=== PATIENT | male | born 1960 | race Caucasian/White ===

== ENCOUNTER 2020-07-02 17:51 | Emergency (ER) | payer OTHER, SELFPAY ==
[2020-07-02 17:58] VITALS: BP 143/70; PULSE 54; RESP 18; TEMP 36.7; O2SAT 94
--- NOTE | 2020-07-02 18:36 | ED.WOUNDLAC ---
HPI - Wound/Laceration General Chief Complaint: Wound/Laceration Stated Complaint: Leg lac Related Data Home Medications Medication Instructions Recorded Confirmed fluticasone furoate-vilanterol 1 ea INHALATION DAILY 07/02/20 07/02/20 [Breo Ellipta] montelukast 10 mg PO HS 07/02/20 07/02/20 pirfenidone [Esbriet] 801 mg PO DAILY 07/02/20 07/02/20 potassium citrate 1,080 meq PO DAILY 07/02/20 07/02/20 pravastatin 40 mg PO DAILY 07/02/20 07/02/20 rivaroxaban [Xarelto] 20 mg PO BID 07/02/20 07/02/20 Allergies Allergy/AdvReac Type Severity Reaction Status Date / Time clindamycin Allergy Unknown Verified 07/02/20 18:20 No Known Drug Allergies Allergy Unknown Verified 07/02/20 18:20 [facility] Past Medical History Medical History (Updated 07/02/20 @ 18:43 by Leonela Baker, [facility], ) Hypertension Social History Social History Gender identity (if verbalized by the patient): Male Exam Narrative: Exam Narrative: GENERAL: Well-appearing, well-nourished, and in no acute distress. HEAD: Normocephalic, atraumatic. EYES: EOMI. No redness or drainage. Conjunctivae normal. ENT: Mucous membranes pink and moist. NECK: Normal AROM. CHEST: No respiratory distress. EXTREMITIES: Normal range of motion. No edema. SKIN: Warm, dry, no rash. Capillary refill normal. Normal skin turgor. 4cm full thickness linear laceration to the lateral left lower leg. Left lower leg is 2-3+ pitting edema at baseline. Patient has continuous clear fluid weeping from his wound saturating his home dressing. States this is his baseline when he has a lower extremity wound. Sensation intact. Capillary refill normal. NEURO: No focal deficits. Alert and oriented x3. Gait steady. PSYCH: Normal affect. No signs of depression or anxiety. Course Vital Signs Vital signs: Vital Signs Temperature 98.0 F 07/02/20 17:58 Pulse Rate 54 L 07/02/20 17:58 Respiratory Rate 18 07/02/20 17:58 Blood Pressure 143/70 H 07/02/20 17:58 Pulse Oximetry 94 07/02/20 17:58 Temperature 98.0 F 07/02/20 17:58 Pulse Rate 54 L 07/02/20 17:58 Respiratory Rate 18 07/02/20 17:58 Blood Pressure 143/70 H 07/02/20 17:58 Pulse Oximetry 94 07/02/20 17:58 Reviewed. Pt has been instructed to follow up with his PCP regarding his elevated blood pressure today. Procedures Laceration Laceration 1: Date: 07/02/20 Time: 18:20 Site: lower extremity Side (If applicable): left Size (cm): 4 Description: linear Depth: simple, single layer Local Anesthetic: lidocaine 1% Amount of anesthesia used (mL): 2 Pre-repair: wound explored and irrigated ====== Skin Level ====== Skin layer closed with: nylon Size (cm): 4-0 Number of sutures: 7 Technique: simple, interrupted ====== Subcutaneous Layer ====== ====== Muscle Layer ====== ====== Tendon Layer ====== MDM - Wound/Laceration Differential Diagnosis Differential diagnosis: Likely laceration and avulsion of skin Critical Care Time Critical Care Time Critical Care Time: No Discharge Plan Discharge Clinical Impression: Laceration of left leg Qualifiers: Encounter type: initial encounter Qualified Code(s): S81.812A - Laceration without foreign body, left lower leg, initial encounter Patient Disposition: Home, Self-Care Condition: Stable Instructions: Care For Your Stitches (DC), Laceration (DC) Additional Instructions: Your sutures need to be removed in 7-10 days. Wear the dressing that has been applied for the first 24 hours to allow a scab to start forming. After this, you may remove and wash as normal with soap and water. Do NOT wash with peroxide or alcohol. Do NOT apply antibiotic ointment. Do not submerge herself in standing water such as pools or hot tubs until the sutures are removed. Take tylenol or ibuprofen at home for pain, if able. Follow up with your PCP with
== END 2020-07-02 18:55 | disposition home or self-care (01) ==
PROVIDERS: Emergency Provider Nurse Practitioner; PCP Internal Medicine Infectious Disease
DX: S81.812A Laceration without foreign body, left lower leg, initial encounter (principal); W45.8XXA Other foreign body or object entering through skin, initial encounter; I10 Essential (primary) hypertension
CPT/HCPCS: 12002; 99202; G0463

== ENCOUNTER 2021-04-04 10:32 | Outpatient (CLI) | payer OTHER, SELFPAY ==
--- NOTE | ~2021-04-04 | US_ITS ---
EXAMINATION: US arterial ankle brachial ind DATE: 04/04/2021 11:59 INDICATION: Peripheral arterial disease. TECHNIQUE: Segmental pressures and plethysmographic and Doppler waveforms of the brachial and lower e xtremity arteries were obtained. COMPARISON: None. FINDINGS: Right and left brachial artery pressures of 135 mm Hg and 128 mm Hg, respectively, are concordant (no rmal difference <= 30 mmHg). The right ankle-brachial index (DEVAN) could not be measured due to inability to cuff occlude the arter ies (normal >= 0.9-1.0). The right great toe-brachial index (TBI) is 0.64 (normal >= 0.65). Arterial Doppler waveforms are biphasic at the ankle. The left DEVAN could not be measured due to inability to cuff occlude the arteries. The left TBI is 0.7 8. Arterial Doppler waveforms are biphasic at the ankle. IMPRESSION: 1. Borderline decreased right TBI and nondiagnostic right DEVAN, consistent with right-sided arterial o cclusive disease. 2. No significant left-sided arterial occlusive disease. Reviewed, dictated and finalized at location A. IRATORY CARE FACULTY IMPRESSION: 1. Borderline decreased right TBI and nondiagnostic right DEVAN, consistent with right-sided arterial occlusive disease. 2. No significant left-sided arterial occlusive disease.
--- NOTE | ~2021-04-04 | XR_ITS ---
XR chest 2V 04/04/2021 10:52 Indication: Shortness of breath Procedure: 2 view chest Comparison: No prior studies for comparison. Findings: Patchy bilateral airspace disease, left greater than right, consistent with pneumonia. Card iomegaly. No significant effusion or pneumothorax. Impression: 1: Patchy predominantly basilar airspace disease, consistent with pneumonia. Reviewed, dictated and finalized at location B. OCK TESTER Impression: 1: Patchy predominantly basilar airspace disease, consistent with pneumonia.
--- NOTE | ~2021-04-04 | US_ITS ---
EXAMINATION: US abdomen complete DATE: 04/04/2021 12:05 INDICATION: Cirrhosis. Portal hypertension. TECHNIQUE: Multiple grayscale and Doppler ultrasound images of the abdomen were obtained. COMPARISON: None FINDINGS: Visualized aorta is normal measuring 2.2 cm in AP diameter proximally and 1.9 cm the distal aorta. Po rtions of the mid aorta are obscured by shadowing bowel gas. The visualized proximal inferior vena ca va is normal. Liver has normal echogenicity and contour, with a smooth surface. No liver lesion ident ified. No intrahepatic biliary duct dilation suspected. Portal venous flow was seen in the hepatopeta l, normal direction and has normal Doppler waveform. There is enlargement of the hepatic veins which can be seen with tricuspid regurgitation, right heart failure or other cause of elevated right heart pressure. The gallbladder is normal in appearance. There is no cholelithiasis. The common bile duct measures 2 mm, which is normal. Sonographic Guerrero sign was reported as negative by the tractor sweeper operator. Visualized portion of the pancreatic body appears normal. Portions of the head and tail are obscured by shadowing bowel gas. There is normal renal contour and echogenicity bilaterally. The right kidney measures 11.6 x 5.5 x 5.8 cm and the left 11.5 x 5.0 x 6.2 cm. Echogenic and shadowing renal stones a t the left kidney. 2.3 cm anechoic right renal cyst. There is no hydronephrosis. Mild splenomegaly me asuring 13.3 cm in length. IMPRESSION: 1. Left nephrolithiasis with large shadowing renal stones at the left kidney. 2. Enlargement of the hepatic veins which could be seen with tricuspid regurgitation, right heart joey lure or other cause of altered right heart pressure. 3. Nonspecific mild splenomegaly measuring 13.3 cm in length. Reviewed, dictated and finalized at location A. ATION THERAPY TECHNOLOGIST IMPRESSION: 1. Left nephrolithiasis with large shadowing renal stones at the left kidney. 2. Enlargement of the hepatic veins which could be seen with tricuspid regurgit ation, right heart failure or other cause of altered right heart pressure. 3. Nonspecific mild splenomegaly measuring 13.3 cm in length.
[2021-04-04 12:33] LABS: Basophils Absolute Auto 0.1 K/mm3 (0.0-0.1); Basophils Percent Auto 0.7 % (0.2-1.2); Eosinophils Absolute Auto 0.3 K/mm3 (0-0.3); Eosinophils Percent Auto 3.8 % (0-4.4); Hematocrit 34.4 % (42.0-52.0); Hemoglobin 10.2 g/dL (14.0-18.0); Immature Granulocyte Absolute 0.04 K/mm3 (0.00-0.031); Immature Granulocyte Percent A 0.5 % (0-0.5); Lymphocytes Absolute Auto 2.41 K/mm3 (0.9-3.2); Lymphocytes Percent Auto 28.1 % (18.3-44.2); Mean Corpuscular HGB Conc 29.7 g/dl (32-36); Mean Corpuscular Hemoglobin 25.8 pg (26-34); Mean Corpuscular Volume 86.9 fl (80-100); Mean Platelet Volume 10.9 fl (7.4-10.4); Monocytes Absolute Auto 0.9 K/mm3 (0.1-0.6); Monocytes Percent Auto 10.9 % (2.6-8.5); Neutrophils Absolute Auto 4.8 K/mm3 (1.3-6.7); Platelet Count Result 152 k/mm3 (150-375); Red Blood Count 3.96 M/mm3 (4.6-6.20); Red Cell Distribution Width 18.5 % (11.5-14.5); White Blood Count 8.6 K/mm3 (4.5-10.0)
[2021-04-04 12:49] LABS: Alanine Aminotransferase 16 U/L (4-50); Albumin Level 3.9 g/dL (3.5-5.1); Alkaline Phosphatase 114 U/L (38-126); Anion Gap 6 mmol/L (8-16); Aspartate Amino Transferase 37 U/L (17-59); Bilirubin,Total 0.5 mg/dL (0.2-1.3); Blood Urea Nitrogen 13 mg/dL (9-20); Calcium 8.5 mg/dL (8.4-10.2); Carbon Dioxide 21 mmol/L (22-30); Chloride 106 mmol/L (98-107); Estimated Glomerular Filt Rate > 60; Glucose 95 mg/dL (65-110); Potassium 4.8 mmol/L (3.4-5.0); Sodium 133 mmol/L (137-145)
[2021-04-04 12:55] LABS: NT Pro B Type Natriuretic Pept 1000 pg/mL (5-100)
== END 2021-04-04 10:33 | disposition home or self-care (01) ==
LOC: ANHIMG 10:39
PROVIDERS: PCP Internal Medicine Infectious Disease; Visit Provider Internal Medicine Infectious Disease
DX: R53.83 Other fatigue (principal); R06.02 Shortness of breath; I27.21 Secondary pulmonary arterial hypertension; K76.6 Portal hypertension; K74.60 Unspecified cirrhosis of liver; I73.9 Peripheral vascular disease, unspecified; N20.0 Calculus of kidney
CPT/HCPCS: 36415; 71046; 76700; 80053; 83880; 85025; 93922